=== PATIENT | female | born 1965 | race Asian ===

== ENCOUNTER 2020-06-07 17:47 | Inpatient (IN) | payer MEDICAID, OTHER, SELFPAY ==
[~2020-06-07] VITALS: Ht 157.5 cm; Wt 62.5 kg
[~2020-06-07 17:47] MED LIST: ASPI-556 PO; BENA10TA77 PO; CHOL10002 PO; COLE5PAC PO; GEMF600T89 PO; METF-444 PO; QUET200T5 PO
[2020-06-07] MEDS ORDERED: ERTU15TA PO (18:56)
[2020-06-07] MEDS ORDERED: ASPI-728 PO (18:59)
[2020-06-07] MEDS ORDERED: ATOR10TA84 PO (18:59)
[2020-06-07] MEDS ORDERED: MULT-1366 PO (18:59)
[2020-06-07] MEDS ORDERED: ANAS1TAB50 PO (18:59)
[2020-06-07] MEDS ORDERED: METF-960 PO (18:59)
[2020-06-07] MEDS ORDERED: RISP0.5T39 PO (18:59)
[2020-06-07] MEDS ORDERED: FERR-89 PO (18:59)
[2020-06-07] MEDS ORDERED: VENL-193 PO (18:59)
[2020-06-07] MEDS ORDERED: CALC1TAB93 PO (18:59)
[2020-06-07 19:17] LABS: BASOPHILS % (AUTO) 0.2 % (0.0-2.0); EOSINOPHILS % (AUTO) 0.4 % (1.0-6.0); HEMATOCRIT 45.9 % (36-46); HEMOGLOBIN 14.9 g/dL (12.0-16.0); LYMPHOCYTES # (AUTO) 2.3 K/uL (1.0-4.8); LYMPHOCYTES % (AUTO) 17.1 % (22.0-44.0); MEAN CORPUSCULAR HEMOGLOBIN 28.8 pg (26.0-34.0); MEAN CORPUSCULAR HGB CONC 32.5 G/dL (31.0-37.0); MEAN CORPUSCULAR VOLUME 89 fL (80-100); MONOCYTES % (AUTO) 7.3 % (2.0-9.0); PLATELET COUNT (AUTO) 335 K/uL (150-450); RED BLOOD CELL COUNT(AUTO) 5.18 MIL/uL (4.00-5.20); RED CELL DISTRIBUTION WIDTH 13.5 % (11.5-14.5)
[2020-06-07 19:21] LABS: GLUCOSE,POINT OF CARE 154 MG/DL (70-110)
[2020-06-07 19:36] LABS: ALANINE AMINOTRANSFERASE 31 U/L (12-78); ALBUMIN 4.1 g/dL (3.4-5.0); ALKALINE PHOSPHATASE 88 U/L (46-116); ANION GAP 12 mmol/L (8-16); ASPARTATE AMINOTRANSFERASE 15 U/L (15-37); BILIRUBIN,TOTAL 0.3 mg/dL (0.1-1.0); CALCIUM, TOTAL 10.9 mg/dL (8.8-10.5); CARBON DIOXIDE 26 mmol/L (22-29); CHLORIDE 100 mmol/L (98-107); CREATININE 0.78 mg/dL (0.60-1.30); FREE T4 (FREE THYROXINE) 1.32 ng/dL (0.76-1.46); GLOMERULAR FILTR. RATE CALC > 60 mL/min (>60); GLUCOSE,RANDOM 152 mg/dL (70-110); POTASSIUM 3.7 mmol/L (3.5-5.1); SODIUM SERUM 138 mmol/L (136-145); THYROID STIMULATING HORMONE 1.63 uIU/mL (0.36-3.74); TOTAL PROTEIN, SERUM 8.2 g/dL (6.4-8.2)
[2020-06-07 19:45] LABS: COVID AG,FIA SOURCE NASOPHARYNGEAL
[2020-06-07 20:21] LABS: UREA NITROGEN, BLOOD 17 mg/dL (7-18)
[2020-06-07] MEDS ORDERED: HALOPERIDOL 5 MG TABLET PO PRN (22:00)
[2020-06-07] MEDS ORDERED: LORazepam 2 MG TABLET PO PRN (22:00)
[2020-06-07] MEDS ORDERED: ZOLPIDEM TARTRATE 10 MG TABLET PO PRN (22:00)
[2020-06-08] MEDS ORDERED: INFLUENZA VIRUS VACCINE QVS 2020-21 (6MO+)/PF 60 MCG/0.5 ML SYRINGE IM ONE (02:00)
[2020-06-08 02:32] VITALS: BP 149/89
[2020-06-08] MEDS: MetFORMIN HCL 500 MG TABLET PO SCH ×2 (06:35→16:31)
[2020-06-08] MEDS: FERROUS SULFATE 325 MG EC TABLET PO SCH (06:35)
[2020-06-08 06:44] LABS: GLUCOMETER DEV NAME(LOC) BV2S.; GLUCOSE,POINT OF CARE 119 MG/DL (70-110)
[2020-06-08] MEDS ORDERED: LOPERAMIDE HCL 2 MG CAPSULE PO PRN (07:00)
[2020-06-08] MEDS ORDERED: DOCUSATE SODIUM 100 MG CAPSULE PO PRN (07:00)
[2020-06-08] MEDS ORDERED: MAG HYDROX/AL HYDROX/SIMETH ES 30 ML SUSPENSION UDCUP PO PRN (07:00)
[2020-06-08] MEDS ORDERED: ONDANSETRON HCL 4 MG TABLET PO PRN (07:00)
[2020-06-08] MEDS ORDERED: ALBUTEROL SULFATE HFA 90 MCG/PUFF 8 GM INHALER IH PRN (07:00)
[2020-06-08] MEDS ORDERED: CloNIDine HCL 0.1 MG TABLET PO PRN (07:00)
[2020-06-08] MEDS ORDERED: MAGNESIUM HYDROXIDE SUSPENSION 30 ML UDCUP PO PRN (07:00)
[2020-06-08] MEDS ORDERED: ACETAMINOPHEN 325 MG TABLET PO PRN (07:00)
[2020-06-08] MEDS ORDERED: IBUPROFEN 400 MG TABLET PO PRN (07:00)
[2020-06-08] MEDS ORDERED: PETROLATUM,WHITE 28 GM JELLY TP PRN (07:00)
[2020-06-08] MEDS ORDERED: NICOTINE 14 MG/24 HOUR PATCH TD PRN (07:00)
[2020-06-08 07:57] LABS: CHOL/HDL RATIO 2.1 (3.9-5.7)
[2020-06-08] MEDS: MULTIVITAMINS, THERAPEUTIC TABLET PO SCH (08:50)
[2020-06-08] MEDS: ASPIRIN 81 MG CHEWABLE TABLET PO SCH (08:50)
[2020-06-08 09:32] VITALS: BP 155/94
[2020-06-08] MEDS ORDERED: PNEUMOCOCCAL VACCINE POLYVALENT 0.5 ML VIAL [PPSV23] IM ONE (11:00)
[2020-06-08] MEDS: ANASTROZOLE 1 MG TABLET PO SCH (12:41)
[2020-06-08] MEDS: CALCIUM OYSTER SHELL 250 MG-VIT D3 125 UNITS TABLET PO SCH ×2 (12:41→16:31)
[2020-06-08] MEDS: ATORVASTATIN CALCIUM 10 MG TABLET PO SCH (20:08)
[2020-06-08] MEDS ORDERED: RisperiDONE 1 MG TABLET PO SCH (21:00)
[2020-06-09] MEDS: MetFORMIN HCL 500 MG TABLET PO SCH ×2 (06:32→17:04)
[2020-06-09] MEDS: FERROUS SULFATE 325 MG EC TABLET PO SCH (06:32)
[2020-06-09 07:43] LABS: APPEARANCE,URINE CLEAR (CLEAR); BILIRUBIN,URINE NEGATIVE (NEGATIVE); GLUCOSE, URINE (UA) >=1000 mg/dL (NEGATIVE); KETONES,URINE TRACE mg/dL (NEGATIVE); LEUKOCYTE ESTERASE ,URINE NEGATIVE (NEGATIVE); NITRATE,URINE NEGATIVE (NEGATIVE); OCCULT BLOOD,URINE NEGATIVE (NEGATIVE); PROTEIN,URINE TRACE (NEGATIVE); UROBILINOGEN,URINE 0.2 mg/dL (<=1.0)
[2020-06-09 07:48] LABS: AMPHET/METH SCREEN,URINE NEGATIVE (NEGATIVE); BARBITURATE SCREEN, URINE NEGATIVE (NEGATIVE); BENZODIAZEPINES SCREEN,URINE NEGATIVE (NEGATIVE); CANNABINOID SCREEN,URINE NEGATIVE (NEGATIVE); COCAINE SCREEN,URINE NEGATIVE (NEGATIVE); METHADONE SCREEN, URINE NEGATIVE (NEGATIVE); OPIATE SCREEN,URINE NEGATIVE (NEGATIVE); PHENCYCLIDINE SCREEN,URINE NEGATIVE (NEGATIVE)
[2020-06-09 08:01] VITALS: BP 127/78
[2020-06-09 08:01] LABS: BACTERIA,URINE None Seen /HPF (None Seen); RBC,URINE 0-2 /HPF (0-2); SQUAMOUS EPITHELIAL CELL,UR Rare /LPF (None Seen); WBC,URINE None Seen /HPF (0-5)
[2020-06-09] MEDS: ANASTROZOLE 1 MG TABLET PO SCH (08:30)
[2020-06-09] MEDS: ASPIRIN 81 MG CHEWABLE TABLET PO SCH (08:30)
[2020-06-09] MEDS: VENLAFAXINE HCL 50 MG TABLET PO SCH (08:31)
[2020-06-09] MEDS: CALCIUM OYSTER SHELL 250 MG-VIT D3 125 UNITS TABLET PO SCH ×2 (08:31→17:04)
[2020-06-09] MEDS: MULTIVITAMINS, THERAPEUTIC TABLET PO SCH (08:31)
[2020-06-09 16:15] VITALS: BP 139/85
[2020-06-09] MEDS: RisperiDONE 1 MG TABLET PO SCH (17:05)
[2020-06-09] MEDS: ATORVASTATIN CALCIUM 10 MG TABLET PO SCH (20:01)
[2020-06-10] VITALS: BP 134/81
[2020-06-10] MEDS: FERROUS SULFATE 325 MG EC TABLET PO SCH (06:41)
[2020-06-10] MEDS: MetFORMIN HCL 500 MG TABLET PO SCH ×2 (06:42→17:05)
[2020-06-10 08:01] VITALS: BP 148/93
[2020-06-10] MEDS: MULTIVITAMINS, THERAPEUTIC TABLET PO SCH (09:00)
[2020-06-10] MEDS: RisperiDONE 1 MG TABLET PO SCH ×2 (09:00→17:05)
[2020-06-10] MEDS: ANASTROZOLE 1 MG TABLET PO SCH (09:00)
[2020-06-10] MEDS: CALCIUM OYSTER SHELL 250 MG-VIT D3 125 UNITS TABLET PO SCH ×2 (09:00→17:04)
[2020-06-10] MEDS: ASPIRIN 81 MG CHEWABLE TABLET PO SCH (09:00)
[2020-06-10] MEDS: VENLAFAXINE HCL 50 MG TABLET PO SCH (09:00)
[2020-06-10 16:01] VITALS: BP 146/89
[2020-06-10] MEDS: ATORVASTATIN CALCIUM 10 MG TABLET PO SCH (20:14)
[2020-06-10 22:42] LABS: GLUCOMETER DEV NAME(LOC) BV2S.; GLUCOSE,POINT OF CARE 110 MG/DL (70-110)
[2020-06-11 00:54] VITALS: BP 125/78
[2020-06-11] MEDS: MetFORMIN HCL 500 MG TABLET PO SCH ×3 (06:44→17:00)
[2020-06-11] MEDS: FERROUS SULFATE 325 MG EC TABLET PO SCH ×2 (06:44→06:59)
[2020-06-11 07:55] LABS: BASOPHILS % (AUTO) 0.3 % (0.0-2.0); EOSINOPHILS % (AUTO) 0.2 % (1.0-6.0); HEMOGLOBIN 15.6 g/dL (12.0-16.0); LYMPHOCYTES # (AUTO) 2.8 K/uL (1.0-4.8); LYMPHOCYTES % (AUTO) 21.7 % (22.0-44.0); MEAN CORPUSCULAR HEMOGLOBIN 29.5 pg (26.0-34.0); MEAN CORPUSCULAR HGB CONC 33.1 G/dL (31.0-37.0); MEAN CORPUSCULAR VOLUME 89 fL (80-100); MONOCYTES # (AUTO) 1.1 K/uL (0.1-1.0); MONOCYTES % (AUTO) 8.7 % (2.0-9.0); NEUTROPHILS % (AUTO) 69.1 % (40.0-70.0); PLATELET COUNT (AUTO) 329 K/uL (150-450); RED BLOOD CELL COUNT(AUTO) 5.29 MIL/uL (4.00-5.20); RED CELL DISTRIBUTION WIDTH 13.4 % (11.5-14.5)
[2020-06-11] MEDS: VENLAFAXINE HCL 50 MG TABLET PO SCH ×2 (08:03→08:30)
[2020-06-11] MEDS: RisperiDONE 1 MG TABLET PO SCH ×2 (08:04→08:30)
[2020-06-11] MEDS: ANASTROZOLE 1 MG TABLET PO SCH ×2 (08:04→08:29)
[2020-06-11] MEDS: CALCIUM OYSTER SHELL 250 MG-VIT D3 125 UNITS TABLET PO SCH ×3 (08:04→17:00)
[2020-06-11] MEDS: ASPIRIN 81 MG CHEWABLE TABLET PO SCH ×2 (08:04→08:29)
[2020-06-11] MEDS: MULTIVITAMINS, THERAPEUTIC TABLET PO SCH ×2 (08:04→08:30)
[2020-06-11 16:00] VITALS: BP 149/95
[2020-06-11] MEDS: ATORVASTATIN CALCIUM 10 MG TABLET PO SCH (21:00)
[2020-06-12] MEDS: FERROUS SULFATE 325 MG EC TABLET PO SCH (06:54)
[2020-06-12] MEDS: MetFORMIN HCL 500 MG TABLET PO SCH ×2 (06:55→17:00)
[2020-06-12 08:12] VITALS: BP 132/89
[2020-06-12] MEDS: CALCIUM OYSTER SHELL 250 MG-VIT D3 125 UNITS TABLET PO SCH ×2 (08:13→17:00)
[2020-06-12] MEDS: MULTIVITAMINS, THERAPEUTIC TABLET PO SCH (08:13)
[2020-06-12] MEDS: ANASTROZOLE 1 MG TABLET PO SCH (08:13)
[2020-06-12] MEDS: ASPIRIN 81 MG CHEWABLE TABLET PO SCH (08:14)
[2020-06-12 16:00] VITALS: BP 128/78
[2020-06-12] MEDS: OLANZapine 5 MG TABLET PO SCH (17:00)
[2020-06-12] MEDS: ATORVASTATIN CALCIUM 10 MG TABLET PO SCH (20:02)
[2020-06-13 05:46] VITALS: BP 125/76
[2020-06-13] MEDS: FERROUS SULFATE 325 MG EC TABLET PO SCH (06:52)
[2020-06-13] MEDS: MetFORMIN HCL 500 MG TABLET PO SCH ×2 (06:52→17:00)
[2020-06-13 08:03] VITALS: BP 136/56
[2020-06-13] MEDS: ANASTROZOLE 1 MG TABLET PO SCH (08:55)
[2020-06-13] MEDS: ASPIRIN 81 MG CHEWABLE TABLET PO SCH (08:55)
[2020-06-13] MEDS: CALCIUM OYSTER SHELL 250 MG-VIT D3 125 UNITS TABLET PO SCH ×2 (08:56→17:00)
[2020-06-13] MEDS: OLANZapine 5 MG TABLET PO SCH ×2 (08:56→17:00)
[2020-06-13] MEDS: MULTIVITAMINS, THERAPEUTIC TABLET PO SCH (08:56)
[2020-06-13 16:00] VITALS: BP 146/90
[2020-06-13] MEDS: ATORVASTATIN CALCIUM 10 MG TABLET PO SCH (20:41)
[2020-06-14] VITALS: BP 131/84
[2020-06-14] MEDS: FERROUS SULFATE 325 MG EC TABLET PO SCH (06:55)
[2020-06-14] MEDS: MetFORMIN HCL 500 MG TABLET PO SCH ×2 (06:56→16:47)
[2020-06-14 08:00] VITALS: BP 128/65
[2020-06-14] MEDS: MULTIVITAMINS, THERAPEUTIC TABLET PO SCH (08:08)
[2020-06-14] MEDS: ANASTROZOLE 1 MG TABLET PO SCH (08:08)
[2020-06-14] MEDS: ASPIRIN 81 MG CHEWABLE TABLET PO SCH (08:08)
[2020-06-14] MEDS: CALCIUM OYSTER SHELL 250 MG-VIT D3 125 UNITS TABLET PO SCH ×2 (08:08→16:47)
[2020-06-14] MEDS: OLANZapine 5 MG TABLET PO SCH ×2 (08:08→16:47)
[2020-06-14 16:04] VITALS: BP 122/78
[2020-06-14] MEDS: ATORVASTATIN CALCIUM 10 MG TABLET PO SCH (20:08)
[2020-06-15 01:50] VITALS: BP 128/79
[2020-06-15] MEDS: MetFORMIN HCL 500 MG TABLET PO SCH ×2 (06:44→16:57)
[2020-06-15] MEDS: FERROUS SULFATE 325 MG EC TABLET PO SCH (06:44)
[2020-06-15] MEDS: ASPIRIN 81 MG CHEWABLE TABLET PO SCH (08:06)
[2020-06-15] MEDS: ANASTROZOLE 1 MG TABLET PO SCH (08:06)
[2020-06-15] MEDS: MULTIVITAMINS, THERAPEUTIC TABLET PO SCH (08:07)
[2020-06-15] MEDS: CALCIUM OYSTER SHELL 250 MG-VIT D3 125 UNITS TABLET PO SCH ×2 (08:07→16:57)
[2020-06-15] MEDS: OLANZapine 5 MG TABLET PO SCH ×2 (08:07→16:57)
[2020-06-15 08:13] LABS: BASOPHILS % (AUTO) 0.4 % (0.0-2.0); EOSINOPHILS % (AUTO) 0.5 % (1.0-6.0); HEMATOCRIT 42.8 % (36-46); HEMOGLOBIN 14.3 g/dL (12.0-16.0); LYMPHOCYTES # (AUTO) 2.3 K/uL (1.0-4.8); LYMPHOCYTES % (AUTO) 23.6 % (22.0-44.0); MEAN CORPUSCULAR HEMOGLOBIN 29.9 pg (26.0-34.0); MEAN CORPUSCULAR HGB CONC 33.4 G/dL (31.0-37.0); MEAN CORPUSCULAR VOLUME 90 fL (80-100); MONOCYTES # (AUTO) 0.9 K/uL (0.1-1.0); MONOCYTES % (AUTO) 9.2 % (2.0-9.0); NEUTROPHILS # (AUTO) 6.3 K/uL (1.8-7.7); NEUTROPHILS % (AUTO) 66.3 % (40.0-70.0); PLATELET COUNT (AUTO) 303 K/uL (150-450); RED BLOOD CELL COUNT(AUTO) 4.78 MIL/uL (4.00-5.20); RED CELL DISTRIBUTION WIDTH 13.3 % (11.5-14.5)
[2020-06-15] MEDS: ATORVASTATIN CALCIUM 10 MG TABLET PO SCH (20:25)
[2020-06-16] MEDS: MetFORMIN HCL 500 MG TABLET PO SCH ×2 (06:53→16:42)
[2020-06-16] MEDS: FERROUS SULFATE 325 MG EC TABLET PO SCH (06:53)
[2020-06-16 08:05] VITALS: BP 127/78
[2020-06-16] MEDS: ASPIRIN 81 MG CHEWABLE TABLET PO SCH (09:00)
[2020-06-16] MEDS: OLANZapine 5 MG TABLET PO SCH ×2 (09:00→16:43)
[2020-06-16] MEDS: ANASTROZOLE 1 MG TABLET PO SCH (09:00)
[2020-06-16] MEDS: CALCIUM OYSTER SHELL 250 MG-VIT D3 125 UNITS TABLET PO SCH ×2 (09:00→16:42)
[2020-06-16] MEDS: MULTIVITAMINS, THERAPEUTIC TABLET PO SCH (09:00)
[2020-06-16 17:26] VITALS: BP 143/90
[2020-06-16] MEDS: ATORVASTATIN CALCIUM 10 MG TABLET PO SCH (21:00)
[2020-06-17] MEDS: FERROUS SULFATE 325 MG EC TABLET PO SCH (07:00)
[2020-06-17] MEDS: MetFORMIN HCL 500 MG TABLET PO SCH ×2 (07:00→16:29)
[2020-06-17 08:03] VITALS: BP 145/75
[2020-06-17] MEDS: ASPIRIN 81 MG CHEWABLE TABLET PO SCH (08:12)
[2020-06-17] MEDS: OLANZapine 5 MG TABLET PO SCH ×2 (08:12→16:30)
[2020-06-17] MEDS: CALCIUM OYSTER SHELL 250 MG-VIT D3 125 UNITS TABLET PO SCH ×2 (08:12→16:29)
[2020-06-17] MEDS: MULTIVITAMINS, THERAPEUTIC TABLET PO SCH (08:12)
[2020-06-17] MEDS: ANASTROZOLE 1 MG TABLET PO SCH (08:12)
[2020-06-17 17:38] VITALS: BP 125/77
[2020-06-17] MEDS: ATORVASTATIN CALCIUM 10 MG TABLET PO SCH (20:19)
[2020-06-18 05:44] VITALS: BP 130/86
[2020-06-18] MEDS: MetFORMIN HCL 500 MG TABLET PO SCH ×2 (07:00→16:55)
[2020-06-18] MEDS: FERROUS SULFATE 325 MG EC TABLET PO SCH (07:00)
[2020-06-18] MEDS: ASPIRIN 81 MG CHEWABLE TABLET PO SCH (08:03)
[2020-06-18] MEDS: ANASTROZOLE 1 MG TABLET PO SCH (08:03)
[2020-06-18] MEDS: CALCIUM OYSTER SHELL 250 MG-VIT D3 125 UNITS TABLET PO SCH ×2 (08:03→16:54)
[2020-06-18] MEDS: MULTIVITAMINS, THERAPEUTIC TABLET PO SCH (08:03)
[2020-06-18] MEDS: OLANZapine 5 MG TABLET PO SCH ×2 (08:03→16:55)
[2020-06-18 08:34] VITALS: BP 133/84
[2020-06-18 16:34] VITALS: BP 137/90
[2020-06-18] MEDS: ATORVASTATIN CALCIUM 10 MG TABLET PO SCH (20:08)
[2020-06-19 01:24] VITALS: BP 109/51
[2020-06-19] MEDS: MetFORMIN HCL 500 MG TABLET PO SCH ×2 (06:13→16:51)
[2020-06-19] MEDS: FERROUS SULFATE 325 MG EC TABLET PO SCH (06:13)
[2020-06-19 08:16] VITALS: BP 122/78
[2020-06-19] MEDS: OLANZapine 5 MG TABLET PO SCH ×2 (08:40→16:51)
[2020-06-19] MEDS: MULTIVITAMINS, THERAPEUTIC TABLET PO SCH (08:40)
[2020-06-19] MEDS: ANASTROZOLE 1 MG TABLET PO SCH (08:40)
[2020-06-19] MEDS: CALCIUM OYSTER SHELL 250 MG-VIT D3 125 UNITS TABLET PO SCH ×2 (08:40→16:51)
[2020-06-19] MEDS: ASPIRIN 81 MG CHEWABLE TABLET PO SCH (08:40)
[2020-06-19 16:02] VITALS: BP 125/81
[2020-06-19] MEDS: ATORVASTATIN CALCIUM 10 MG TABLET PO SCH (20:01)
[2020-06-20 05:26] VITALS: BP 120/73
[2020-06-20] MEDS: MetFORMIN HCL 500 MG TABLET PO SCH ×2 (06:50→16:45)
[2020-06-20] MEDS: FERROUS SULFATE 325 MG EC TABLET PO SCH (06:50)
[2020-06-20] MEDS: OLANZapine 5 MG TABLET PO SCH ×2 (08:19→16:45)
[2020-06-20] MEDS: CALCIUM OYSTER SHELL 250 MG-VIT D3 125 UNITS TABLET PO SCH ×2 (08:19→16:45)
[2020-06-20] MEDS: ANASTROZOLE 1 MG TABLET PO SCH (08:19)
[2020-06-20] MEDS: ASPIRIN 81 MG CHEWABLE TABLET PO SCH (08:19)
[2020-06-20] MEDS: MULTIVITAMINS, THERAPEUTIC TABLET PO SCH (08:19)
[2020-06-20 08:26] VITALS: BP 117/78
[2020-06-20] MEDS ORDERED: HALOPERIDOL LACTATE 5 MG/ML VIAL IM PRN (11:15)
[2020-06-20 16:00] VITALS: BP 121/89
[2020-06-20] MEDS: ATORVASTATIN CALCIUM 10 MG TABLET PO SCH (20:05)
[2020-06-21 00:03] VITALS: BP 123/72
[2020-06-21] MEDS: FERROUS SULFATE 325 MG EC TABLET PO SCH (06:47)
[2020-06-21] MEDS: MetFORMIN HCL 500 MG TABLET PO SCH ×2 (06:47→16:52)
[2020-06-21 08:05] VITALS: BP 123/73
[2020-06-21] MEDS: ANASTROZOLE 1 MG TABLET PO SCH (08:05)
[2020-06-21] MEDS: ASPIRIN 81 MG CHEWABLE TABLET PO SCH (08:06)
[2020-06-21] MEDS: OLANZapine 5 MG TABLET PO SCH ×2 (08:06→16:52)
[2020-06-21] MEDS: CALCIUM OYSTER SHELL 250 MG-VIT D3 125 UNITS TABLET PO SCH ×2 (08:06→16:52)
[2020-06-21] MEDS: MULTIVITAMINS, THERAPEUTIC TABLET PO SCH (08:06)
[2020-06-21 16:18] VITALS: BP 110/80
[2020-06-21] MEDS: ATORVASTATIN CALCIUM 10 MG TABLET PO SCH (20:12)
[2020-06-22 03:36] VITALS: BP 112/70
[2020-06-22] MEDS: FERROUS SULFATE 325 MG EC TABLET PO SCH (06:23)
[2020-06-22] MEDS: MetFORMIN HCL 500 MG TABLET PO SCH ×2 (06:23→16:15)
[2020-06-22 08:03] VITALS: BP 131/89
[2020-06-22] MEDS: ASPIRIN 81 MG CHEWABLE TABLET PO SCH (08:11)
[2020-06-22] MEDS: OLANZapine 5 MG TABLET PO SCH ×2 (08:11→16:15)
[2020-06-22] MEDS: ANASTROZOLE 1 MG TABLET PO SCH (08:11)
[2020-06-22] MEDS: CALCIUM OYSTER SHELL 250 MG-VIT D3 125 UNITS TABLET PO SCH ×2 (08:12→16:16)
[2020-06-22] MEDS: MULTIVITAMINS, THERAPEUTIC TABLET PO SCH (08:12)
[2020-06-22 16:08] VITALS: BP 110/74
[2020-06-22] MEDS: ATORVASTATIN CALCIUM 10 MG TABLET PO SCH (19:40)
[2020-06-23 00:15] VITALS: BP 120/80
[2020-06-23] MEDS: FERROUS SULFATE 325 MG EC TABLET PO SCH (06:32)
[2020-06-23] MEDS: MetFORMIN HCL 500 MG TABLET PO SCH ×2 (06:32→17:00)
[2020-06-23] MEDS: ANASTROZOLE 1 MG TABLET PO SCH (08:17)
[2020-06-23] MEDS: OLANZapine 5 MG TABLET PO SCH ×2 (08:18→17:08)
[2020-06-23] MEDS: CALCIUM OYSTER SHELL 250 MG-VIT D3 125 UNITS TABLET PO SCH ×2 (08:18→17:08)
[2020-06-23] MEDS: MULTIVITAMINS, THERAPEUTIC TABLET PO SCH (08:18)
[2020-06-23] MEDS: ASPIRIN 81 MG CHEWABLE TABLET PO SCH (08:18)
[2020-06-23 09:27] VITALS: BP 126/87
[2020-06-23 16:05] VITALS: BP 126/83
[2020-06-23] MEDS: ATORVASTATIN CALCIUM 10 MG TABLET PO SCH (20:19)
[2020-06-24 05:15] VITALS: BP 124/77
[2020-06-24] MEDS: FERROUS SULFATE 325 MG EC TABLET PO SCH (06:38)
[2020-06-24] MEDS: MetFORMIN HCL 500 MG TABLET PO SCH ×2 (06:56→17:00)
[2020-06-24] MEDS: ASPIRIN 81 MG CHEWABLE TABLET PO SCH (08:18)
[2020-06-24] MEDS: OLANZapine 5 MG TABLET PO SCH ×2 (08:18→17:14)
[2020-06-24] MEDS: MULTIVITAMINS, THERAPEUTIC TABLET PO SCH (08:18)
[2020-06-24] MEDS: CALCIUM OYSTER SHELL 250 MG-VIT D3 125 UNITS TABLET PO SCH ×2 (08:18→17:14)
[2020-06-24] MEDS: ANASTROZOLE 1 MG TABLET PO SCH (08:18)
[2020-06-24 09:56] VITALS: BP 133/75
[2020-06-24 16:05] VITALS: BP 142/87
[2020-06-24] MEDS: GuaiFENesin/D-METHORPHAN [SUGAR-FREE] 200-20MG/10 ML SYRUP UDCUP PO PRN (18:03)
[2020-06-24] MEDS: ATORVASTATIN CALCIUM 10 MG TABLET PO SCH (20:17)
[2020-06-25 00:37] VITALS: BP 134/93
[2020-06-25] MEDS: FERROUS SULFATE 325 MG EC TABLET PO SCH (06:48)
[2020-06-25] MEDS: MetFORMIN HCL 500 MG TABLET PO SCH ×2 (06:48→16:46)
[2020-06-25 08:15] VITALS: BP 147/90
[2020-06-25] MEDS: OLANZapine 5 MG TABLET PO SCH ×2 (08:15→16:05)
[2020-06-25] MEDS: ANASTROZOLE 1 MG TABLET PO SCH (08:15)
[2020-06-25] MEDS: ASPIRIN 81 MG CHEWABLE TABLET PO SCH (08:15)
[2020-06-25] MEDS: CALCIUM OYSTER SHELL 250 MG-VIT D3 125 UNITS TABLET PO SCH ×2 (08:15→16:05)
[2020-06-25] MEDS: MULTIVITAMINS, THERAPEUTIC TABLET PO SCH (08:15)
[2020-06-25 16:00] VITALS: BP 128/81
[2020-06-25] MEDS: ATORVASTATIN CALCIUM 10 MG TABLET PO SCH (20:15)
[2020-06-26 05:16] VITALS: BP 131/91
[2020-06-26] MEDS: MetFORMIN HCL 500 MG TABLET PO SCH ×2 (06:50→16:05)
[2020-06-26] MEDS: FERROUS SULFATE 325 MG EC TABLET PO SCH (06:50)
[2020-06-26] MEDS: OLANZapine 5 MG TABLET PO SCH ×2 (08:20→16:05)
[2020-06-26] MEDS: ASPIRIN 81 MG CHEWABLE TABLET PO SCH (08:20)
[2020-06-26] MEDS: MULTIVITAMINS, THERAPEUTIC TABLET PO SCH (08:20)
[2020-06-26] MEDS: CALCIUM OYSTER SHELL 250 MG-VIT D3 125 UNITS TABLET PO SCH ×2 (08:20→16:05)
[2020-06-26] MEDS: ANASTROZOLE 1 MG TABLET PO SCH (08:20)
[2020-06-26 08:34] VITALS: BP 137/90
[2020-06-26 17:28] VITALS: BP 138/80
[2020-06-26] MEDS: GuaiFENesin/D-METHORPHAN [SUGAR-FREE] 200-20MG/10 ML SYRUP UDCUP PO PRN (18:47)
[2020-06-26] MEDS: ATORVASTATIN CALCIUM 10 MG TABLET PO SCH (20:33)
[2020-06-27 00:52] VITALS: BP 140/95
[2020-06-27] MEDS: MetFORMIN HCL 500 MG TABLET PO SCH ×2 (06:57→16:11)
[2020-06-27] MEDS: FERROUS SULFATE 325 MG EC TABLET PO SCH (06:57)
[2020-06-27] MEDS: ASPIRIN 81 MG CHEWABLE TABLET PO SCH (08:01)
[2020-06-27] MEDS: CALCIUM OYSTER SHELL 250 MG-VIT D3 125 UNITS TABLET PO SCH ×2 (08:01→16:11)
[2020-06-27] MEDS: ANASTROZOLE 1 MG TABLET PO SCH (08:01)
[2020-06-27] MEDS: OLANZapine 5 MG TABLET PO SCH ×2 (08:01→16:11)
[2020-06-27] MEDS: MULTIVITAMINS, THERAPEUTIC TABLET PO SCH (08:01)
[2020-06-27 08:05] VITALS: BP 145/86
[2020-06-27] MEDS ORDERED: OLAN5TAB2 PO (15:50)
[2020-06-27 16:04] VITALS: BP 128/77
== END 2020-06-27 17:10 | disposition home or self-care (01) | DRG 750 ==
LOC: EMS 17:47 → B2S 21:47
PROVIDERS: ADMIT Psychiatry & Neurology Psychiatry; ATTEND Psychiatry & Neurology Psychiatry
DX: F25.0 Schizoaffective disorder, bipolar type (principal); E11.9 Type 2 diabetes mellitus without complications; I10 Essential (primary) hypertension; E78.00 Pure hypercholesterolemia, unspecified; Z85.3 Personal history of malignant neoplasm of breast; Z59.0 Homelessness; Z90.13 Acquired absence of bilateral breasts and nipples; D72.829 Elevated white blood cell count, unspecified; E78.5 Hyperlipidemia, unspecified; F41.9 Anxiety disorder, unspecified; D64.9 Anemia, unspecified; Z92.21 Personal history of antineoplastic chemotherapy; J30.2 Other seasonal allergic rhinitis; Z20.828 Contact with and (suspected) exposure to other viral communicable diseases; Z23 Encounter for immunization; F32.9 Major depressive disorder, single episode, unspecified
CPT/HCPCS: 84439; 84443; 87426; 90686; 90732; G0480